=== PATIENT | female | born 1995 | race Asian ===

== ENCOUNTER 2017-03-17 21:14 | Emergency (ER) | payer OTHER ==
[2017-03-17 21:22] VITALS: BP 153/92; PULSE 112; TEMP 98; BMI 30.1
--- NOTE | 2017-03-17 22:03 | PDOC ---
History of Present Illness - General Chief Complaint: Nausea/Vomiting Stated Complaint: NAUSEA/VOMITING Time Seen by Provider: 03/17/17 21:59 History Source: Patient - History of Present Illness Initial Comments: 03/17/17 23:30 21 year old female c/o NVD, sinus pressure with cough and wheezing x 1 week. denies fever. recent travel abroad prior to URI symptoms. no pmHX Past History - Past Medical History Allergies/Adverse Reactions: Allergies Allergy/AdvReac Type Severity Reaction Status Date / Time No Known Allergies Allergy Verified 03/17/17 21:16 Home Medications: Ambulatory Orders Albuterol Sulfate Inhaler - [Ventolin Hfa Inhaler -] 1 - 2 inh PO Q4H PRN #1 inhaler 03/17/17 Azithromycin 250 mg PO DAILY #4 tablet 03/17/17 Other medical history: denies - Immunization History Immunization Up to Date: Yes - Psycho/Social/Smoking Cessation Hx Suicidal Ideation: No Smoking History: Never smoked Information on smoking cessation initiated: No Hx Alcohol Use: No Drug/Substance Use Hx: No Review of Systems - Review of Systems Able to Perform ROS?: Yes Is the patient limited Amharic proficient: No HEENTM: Yes: Nose Congestion Respiratory: Yes: Cough, Wheezing ABD/GI: Yes: Diarrhea, Nausea, Vomiting *Physical Exam - Vital Signs Last Vital Signs Temp Pulse Resp BP Pulse Ox 98.0 F 112 H 20 153/92 100 03/17/17 21:16 03/17/17 21:16 03/17/17 21:16 03/17/17 21:16 03/17/17 21:16 - Physical Exam General Appearance: Yes: Appropriately Dressed HEENT: positive: Other (frontal sinus tenderness) Respiratory/Chest: positive: Lungs Clear, Normal Breath Sounds, Wheezing (mild expiratory wheezing) Gastrointestinal/Abdominal: positive: Normal Bowel Sounds, Soft. negative: Tender Extremity: positive: Normal Capillary Refill, Normal Inspection, Normal Range of Motion Integumentary: positive: Normal Color, Dry, Warm Neurologic: positive: Fully Oriented, Alert, Normal Mood/Affect Progress Note - Progress Note Progress Note: A: URI Will give albuterol Azithromycin tylenol outpatient PMD follow up *DC/Admit/Observation/Transfer Diagnosis at time of Disposition: URI (upper respiratory infection) Qualifiers: URI type: acute laryngitis Qualified Code(s): J04.0 - Acute laryngitis - Discharge Dispostion Disposition: HOME - Prescriptions Prescriptions: Azithromycin 250 mg PO DAILY #4 tablet Albuterol Sulfate Inhaler - [Ventolin Hfa Inhaler -] 1 - 2 inh PO Q4H PRN #1 inhaler PRN Reason: Cough - Referrals Referrals: Anyi Chang MD [Primary Care Provider] - 2 Days - Patient Instructions Printed Discharge Instructions: DI for Laryngitis Additional Instructions: use albuterol inhaler 2 puffs every 4 hours as needed for cough continue azithromycin as prescribed. follow up with your doctor as soon as possible. - Post Discharge Activity Work/School Note: Back to Work
[2017-03-17] MEDS ORDERED: ALBUTEROL SO4 0.5 % INH SOLN 2.5 MG/0.5 ML VIAL.NEB. NEB ONE (22:18)
[2017-03-17] MEDS ORDERED: ONDANSETRON 4 MG TABLET PO ONE (22:18)
[2017-03-17] MEDS ORDERED: ONDANSETRON *ODT* 4 MG TABLET ONE (22:45)
[2017-03-17] MEDS ORDERED: ALBUTEROL SO4 0.083% IH SOL 2.5 MG/3 ML VIAL.NEB. NEB ONE (22:47)
[2017-03-17 22:59] LABS: URINE APPEARANCE CLEAR; URINE BILIRUBIN NEGATIVE (NEGATIVE); URINE COLOR STRAW; URINE GLUCOSE (UA) NEGATIVE (NEGATIVE); URINE KETONE NEGATIVE (NEGATIVE); URINE LEUK ESTERASE NEGATIVE (NEGATIVE); URINE NITRITE NEGATIVE (NEGATIVE); URINE PROTEIN NEGATIVE (NEGATIVE); URINE UROBILINOGEN NEGATIVE E.U./dl (0.2-1.0)
[2017-03-17 23:03] LABS: URINE BLOOD 1+ (NEGATIVE)
[2017-03-17 23:05] LABS: URINE WBC <1 /hpf (3-5)
[2017-03-17] MEDS ORDERED: ALBUTEROL SO4 2.5/IPRATROPIUM 0.5 INH SOL 3 ML VIAL.NEB. NEB ONE (23:29)
[2017-03-17] MEDS ORDERED: AZITHROMYCIN 250 MG TABLET (FP) PO ONE (23:31)
--- NOTE | 2017-03-17 23:33 | PDOC ---
*Physical Exam - Vital Signs Last Vital Signs Temp Pulse Resp BP Pulse Ox 98.0 F 112 H 20 153/92 100 03/17/17 21:16 03/17/17 21:16 03/17/17 21:16 03/17/17 21:16 03/17/17 21:16 ED Treatment Course - ADDITIONAL ORDERS Additional order review: Laboratory Results 03/17/17 22:40 Urine Color Straw Urine Appearance Clear Urine pH 7.0 Urine Protein Negative Urine Glucose (UA) Negative Urine Ketones Negative Urine Blood 1+ H Urine Nitrite Negative Urine Bilirubin Negative Urine Urobilinogen Negative Ur Leukocyte Esterase Negative Urine WBC <1 Ur Epithelial Cells Rare Urine HCG, Qual Negative - Medications Given in the ED: ED Medications Discontinued Medications Generic Name Dose Route Start Last Admin Trade Name Freq PRN Reason Stop Dose Admin Albuterol Sulfate 1 amp 03/17/17 22:18 03/17/17 23:00 Ventolin 0.5% - NEB 03/17/17 22:19 1 amp ONCE ONE Administration Ondansetron HCl 4 mg 03/17/17 22:18 03/17/17 22:47 Zofran - PO 03/17/17 22:19 4 mg ONCE ONE Administration Medical Decision Making - Medical Decision Making 03/17/17 23:33 agree with care from IRVING Palacios *DC/Admit/Observation/Transfer Diagnosis at time of Disposition: URI (upper respiratory infection) - Discharge Dispostion Disposition: HOME - Prescriptions Prescriptions: Azithromycin 250 mg PO DAILY #4 tablet Albuterol Sulfate Inhaler - [Ventolin Hfa Inhaler -] 1 - 2 inh PO Q4H PRN #1 inhaler PRN Reason: Cough - Referrals Referrals: Anyi Chang MD [Primary Care Provider] - 2 Days - Patient Instructions Printed Discharge Instructions: DI for Laryngitis Additional Instructions: use albuterol inhaler 2 puffs every 4 hours as needed for cough continue azithromycin as prescribed. follow up with your doctor as soon as possible. - Post Discharge Activity Work/School Note: Back to Work
[2017-03-17] MEDS ORDERED: ACETAMINOPHEN 325 MG TABLET (FP) PO ONE (23:34)
[2017-03-18] MEDS ORDERED: AZITHROMYCIN 250 MG TABLET (FP) ONE (00:13)
[2017-03-18] MEDS ORDERED: ACETAMINOPHEN 325 MG TABLET (FP) ONE (00:13)
[2017-03-18 13:19] LABS: URINE RBC 1 /hpf (0-3)
== END 2017-03-18 00:20 | disposition home or self-care (01) ==
LOC: JER 21:14
PROC: 3E0F7GC Introduction of Other Therapeutic Substance into Respiratory Tract, Via Natural or Artificial Opening (ICD-10-PCS; principal; 2017-03-17)
PROC: 3E0F7GC Introduction of Other Therapeutic Substance into Respiratory Tract, Via Natural or Artificial Opening (ICD-10-PCS; 2017-03-17)
DX: J06.9 Acute upper respiratory infection, unspecified (principal); J04.0 Acute laryngitis
CPT/HCPCS: 81003; 81015; 84703; 99281-25

== ENCOUNTER 2017-08-16 11:40 | Emergency (ER) | payer OTHER ==
[2017-08-16 11:45] VITALS: BP 145/90; PULSE 90; TEMP 98.3; BMI 33.6
--- NOTE | 2017-08-16 12:33 | PDOC ---
History of Present Illness - General Chief Complaint: Sore Throat Stated Complaint: THROAT PAIN, TONSILS PAIN Time Seen by Provider: 08/16/17 11:46 - History of Present Illness Initial Comments: 08/16/17 12:28 CHIEF COMPLAINT: sore throat HISTORY OF PRESENT ILLNESS: 21 yo F with no PMH [facility] with "white stuff on my throat" x 3 days. Patient denies cough, runny nose, sneezing. She reports having body aches and "just not feeling well." She also reports "having black stool" for 3 days as well. PAST MEDICAL HISTORY: Denies past medical history FAMILY HISTORY: Denies SOCIAL HISTORY: Denies tobacco, alcohol, illicit drug use. SURGICAL HISTORY: Denies ALLERGIES: No known drug allergies REVIEW OF SYSTEMS General/Constitutional: Denies fever or chills. Denies weakness, weight change. HEENT: "White stuff on throat, and it feels swollen" x 3 days. Denies change in vision. Denies ear pain or discharge. Cardiovascular: Denies chest pain or shortness of breath. Respiratory: Denies cough, wheezing, or hemoptysis. Gastrointestinal: Denies nausea, vomiting, diarrhea, rectal bleeding. Genitourinary: Denies dysuria, frequency, or change in urination. Musculoskeletal: Denies joint or muscle swelling or pain. Denies neck or back pain. Skin: Denies rash or easy bruising. Neurologic: Denies headache, vertigo, loss of consciousness, or loss of sensation. PHYSICAL EXAM General Appearance: Well-appearing, appropriately dressed. No apparent distress. HEENT: Tonsils 2+ b/l with multiple exudate. EOMI, PERRLA, normal voice, TMs normal. No conjunctival pallor. No photophobia, scleral icterus. Neck: Supple. Trachea midline. No tenderness, rigidity, carotid bruit, stridor , lymphadenopathy, or thyromegaly. Respiratory/Chest: Lungs CTAB. Cardiovascular: RRR. S1, S2. Gastrointestinal/Abdominal: Normal bowel sounds. Abdomen soft, non-distended. No tenderness or rebound tenderness. No organomegaly, pulsatile mass, guarding , hernia, hepatomegaly, splenomegaly. Musculoskeletal/Extremities: Normal inspection. FROM of all extremities, normal capillary refill. Pelvis Stable. No CVA tenderness. No tenderness to extremities, pedal edema, swelling, erythema or deformity. Integumentary: Appropriate color, dry, warm. 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 Fully oriented, alert. Appropriate mood/affect. Motor strength 5/5. No appreciable EOM palsy, facial droop or sensory deficit. 08/16/17 13:12 Past History - Past Medical History Allergies/Adverse Reactions: Allergies Allergy/AdvReac Type Severity Reaction Status Date / Time No Known Allergies Allergy Verified 08/16/17 11:45 Home Medications: Ambulatory Orders Amoxicillin - [Amoxicillin 500mg Capsule -] 500 mg PO BID #20 capsule 08/16/17 Pantoprazole Sodium [Protonix] 40 mg PO DAILY #14 tablet. 08/16/17 Other medical history: denies - Immunization History Immunization Up to Date: Yes - Suicide/Smoking/Psychosocial Hx Smoking History: Never smoked Information on smoking cessation initiated: No Hx Alcohol Use: No Drug/Substance Use Hx: No Substance Use Type: None *Physical Exam - Vital Signs Last Vital Signs Temp Pulse Resp BP Pulse Ox 98.3 F 90 18 145/90 100 08/16/17 11:43 08/16/17 11:43 08/16/17 11:43 08/16/17 11:43 08/16/17 11:43 Medical Decision Making - Medical Decision Making 08/16/17 12:33 21 yo F with no PMH [facility] with "white stuff on my throat" x 3 days. -rapid strep *DC/Admit/Observation/Transfer Diagnosis at time of Disposition: Dark stools, Strep pharyngitis - Discharge Dispostion Disposition: HOME Condition at time of disposition: Stable Admit: No - Prescriptions Prescriptions: Amoxicillin - [Amoxicillin 500mg Capsule -] 500 mg PO BID #20 capsule Pantoprazole Sodium [Protonix] 40 mg PO DAILY #14 tablet.dr - Referrals Referrals: Anyi Chang MD [Primary Care Provider] - - Patient Instructions Printed Discharge Instructions: DI for Strep Throat Additional Instructions: Please take medication as prescribed. Follow up with your primary care doctor for your dark stool this week. If you develop any abdominal pain, rectal bleeding, lightheadedness, nausea, vomiting, or any new or worsening symptoms, please return to the ER. - Post Discharge Activity Forms/Work/School Notes: Back to Work
== END 2017-08-16 14:32 | disposition home or self-care (01) ==
LOC: JERFT 11:40
DX: J02.0 Streptococcal pharyngitis (principal); K92.1 Melena
CPT/HCPCS: 82272; 87070; 87077; 87430; 99281-25

== ENCOUNTER 2021-03-19 12:10 | Emergency (ER) | payer OTHER ==
[2021-03-19 12:26] VITALS: BP 134/76; PULSE 112; TEMP 98.4; BMI 38.9
== END 2021-03-19 13:43 | disposition home or self-care (01) ==
LOC: JER 12:10
DX: J06.9 Acute upper respiratory infection, unspecified (principal)
CPT/HCPCS: 71046-TC-FY; 99284-25; C9803; U0003; U0005